=== PATIENT | female | born 1980 | race Caucasian/White ===

== ENCOUNTER 2018-02-14 05:55 | Day surgery (SDC) | payer BC ==
[2018-02-14] MEDS ORDERED: fentaNYL 100 MCG/2 ML SDV IV ONE ×3 (05:56→07:00)
[2018-02-14] MEDS ORDERED: Midazolam 1 MG/ML 2 ML SDV IV ONE ×7 (05:56→07:08)
[2018-02-14] MEDS ORDERED: Dextrose 5%-0.45% NaCl 1,000 ML IV SCH (06:00)
[2018-02-14] MEDS ORDERED: Sodium Chloride 0.9% 10 ML Syringe FLUSH PRN (06:00)
[2018-02-14] MEDS ORDERED: Midazolam 1 MG/ML 2 ML SDV ONE (06:14)
[2018-02-14] MEDS ORDERED: fentaNYL 100 MCG/2 ML SDV ONE (06:14)
[2018-02-14] MEDS ORDERED: Sodium Chloride 0.9% 1,000 ML IV ONE (07:20)
--- NOTE | 2018-02-14 08:42 | OR ---
DATE: 02/14/2018 PROCEDURE: Total colonoscopy. INSTRUMENT USED: [id number]-H180AL Olympus video colonoscope. PREMEDICATIONS: Fentanyl 100 mcg intravenous, Versed 4 mg intravenous. Nasal O2 cannula. The procedure was done under pulse oximetry, BP recording, and spray painter helper. INDICATION: The patient with persistent right-sided lower abdominal pain, unexplained, and not responsive to medical measures. Colonoscopic examination is done for detection of any polypoid lesions and removal, endoscopic hemostasis therapy if needed. DESCRIPTION OF PROCEDURE: Initial rectal exam was unremarkable. Rigid anoscopy was normal. The colonoscope was passed with ease up to the ileocecal area, photographs were taken of the normal-appearing cecum, identified by landmarks of appendiceal orifice and double-bulged ileocecal folds. No bleeding was noted from any of the visualized areas at the commencement of examination. No stricture. No vascular ectasia. No large isolated ulcerations seen. No evidence of diffuse inflammatory bowel disease in the form of friability, contact bleeding, or ulcerations. No polyp or tumor mass identified. Probing the proximal sides of folds and flexures, using adequate distention and clearing up the stool material withdrawal of the scope was made. Cecum to rectum time over 6 minutes. No bleeding was noted from any of the visualized areas at the completion of examination. IMPRESSION: Normal study. The patient tolerated the procedure well. [facility] /[id number]
== END 2018-02-14 09:29 | disposition home or self-care (01) ==
LOC: DL.ENDO 05:55
PROVIDERS: ATTEND Internal Medicine Gastroenterology
DX: R10.31 Right lower quadrant pain (principal); F32.9 Major depressive disorder, single episode, unspecified; E66.09 Other obesity due to excess calories; Z90.49 Acquired absence of other specified parts of digestive tract
CPT/HCPCS: 45378; J2250; J3010; J7030; J7042